=== PATIENT | female | born 1950 | race Hispanic/Latino ===

== ENCOUNTER → 2024-12-29 | Outpatient (REF) | payer MEDICARE ==
[~2024-12-29] MED LIST: ALENDRONATE SOD70 MG PO; CALCIUM ACETAT667 MG PO; CRESTOR40 MG PO; OMEPRAZOLE40 MG PO
[2024-12-29 09:48] LABS: BASOPHILS % 0.4 % (0.0-1.0); EOSINOPHILS % 0.7 % (0.0-6.0); LYMPHOCYTES % 31.1 % (18.0-39.1); MONOCYTES % 7.8 % (4.4-11.3); NEUTROPHILS % 59.8 % (38.7-80.0); RED CELL DISTRIBUTION WIDTH 13.5 % (11.7-14.4)
== END ==
LOC: RAD 09:10 → EDSTATUS 01-06 12:00
PROVIDERS: ATTEND Podiatrist Foot & Ankle Surgery
DX: Z01.818 Encounter for other preprocedural examination (principal)
CPT/HCPCS: 36415; 71046; 85025; 93005